=== PATIENT | male | born 1990 | race Two or more races ===

== ENCOUNTER 2022-03-13 06:19 | Emergency (ER) | payer OTHER ==
[~2022-03-13] VITALS: Ht 170.2 cm; Wt 65.8 kg
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
--- NOTE | 2022-03-13 06:35 | NUR ---
DR. ERICA OVIEDO AT PT'S BEDSIDE FOR EVAL
--- NOTE | 2022-03-13 06:51 | NUR ---
PT TAKEN TO CT VIA JOSEPH Addendum: 03/13/22 at 0700 by OMID PT TAKEN TO CT VIA W/C
--- NOTE | 2022-03-13 06:59 | NUR ---
PT RETURNED TO ER 19 VIA W/C
[2022-03-13 08:02] VITALS: BP 115/66
--- NOTE | 2022-03-13 08:03 | NUR ---
discharged in no distress accompanied by [employer].
== END 2022-03-13 08:03 | disposition home or self-care (01) ==
LOC: ER 06:20
DX: S00.31XA Abrasion of nose, initial encounter (principal); R51.9 Headache, unspecified; Z60.2 Problems related to living alone; Y00.XXXA Assault by blunt object, initial encounter; Y93.89 Activity, other specified; Y92.89 Other specified places as the place of occurrence of the external cause; Y99.8 Other external cause status
CPT/HCPCS: 70486-TC